=== PATIENT | female | born 1970 | race Caucasian/White ===

== ENCOUNTER → 2016-04-27 | Outpatient (CLI) | payer BC ==
--- NOTE | 2016-04-27 09:02 | MM ---
Reason for exam: history of breast cancer, conservation therapy. Last mammogram was performed 1 year ago. History: Patient has history of breast cancer at age 44, has history of high-risk lesion on a previous biopsy at age 44, and had first child at age 33. Family history of breast cancer in maternal aunt at age 60. Radiation therapy, September 2014. Malignant MG pre op needle loc RT of the right breast, July 06, 2014. High risk MG stereo VAD BX RT of the right breast, June 24, 2014. Took hormonal contraceptives for 10 years. Taking antineoplastic for 1 year 5 months. Physical Findings: Nurse did not find any significant physical abnormalities on exam. MG Diagnostic Mammo w CAD PATRICIA Bilateral CC and MLO view(s) were taken. Prior study comparison: April 26, 2015, bilateral MG 3d diag mammo w/cad PATRICIA. July 06, 2014, right breast US breast limited RT. June 19, 2014, right breast MG work up mamm w CAD RT. The breast tissue is heterogeneously dense. This may lower the sensitivity of mammography. Post surgical and post therapy changes in the right breast. Some of the right breast tissue has altered orientation, making direct comparison difficult. Short interval follow up recommended. These results were verbally communicated with the patient and result sheet given to the patient on . ASSESSMENT: Probably benign, BI-RAD 3 RECOMMENDATION: Follow-up diagnostic mammogram of the right breast in 6 months.
== END | disposition home or self-care (01) ==
LOC: RADMAMWWP 08:09
PROVIDERS: ATTEND Radiology Diagnostic Radiology
DX: C50.911 Malignant neoplasm of unspecified site of right female breast (principal)

== ENCOUNTER → 2016-10-23 | Outpatient (CLI) | payer BC ==
--- NOTE | 2016-10-23 10:46 | MM ---
Reason for exam: follow-up at short interval from prior study. Last mammogram was performed 6 months ago. History: Patient has history of breast cancer at age 44, has history of high-risk lesion on a previous biopsy at age 44, and had first child at age 33. Family history of breast cancer in maternal aunt at age 60. Radiation therapy, September 2014. Malignant MG pre op needle loc RT of the right breast, July 06, 2014. High risk MG stereo VAD BX RT of the right breast, June 24, 2014. Took hormonal contraceptives for 10 years. Taking antineoplastic for 1 year 5 months. Physical Findings: Nurse did not find any significant physical abnormalities on exam. MG Diagnostic Mammo RT w CAD CC and MLO view(s) were taken of the right breast. Prior study comparison: April 27, 2016, bilateral MG diagnostic mammo w CAD PATRICIA. April 26, 2015, bilateral MG 3d diag mammo w/cad PATRICIA. July 06, 2014, right breast US breast limited RT. The breast tissue is heterogeneously dense. This may lower the sensitivity of mammography. Post surgical changes inferior right breast. An additional 6 month follow up would diane 3 years since patient's surgery. No significant new findings when compared with previous films. These results were verbally communicated with the patient and result sheet given to the patient on 10/23/16. ASSESSMENT: Probably benign, BI-RAD 3 RECOMMENDATION: Follow-up diagnostic mammogram of both breasts in 6 months. Back on schedule for April 2017.
== END | disposition home or self-care (01) ==
LOC: RADMAMWWP 08:55
PROVIDERS: ATTEND Radiology Diagnostic Radiology
DX: C50.911 Malignant neoplasm of unspecified site of right female breast (principal)

== ENCOUNTER → 2017-02-26 | Outpatient (CLI) | payer BC ==
--- NOTE | 2017-02-26 11:15 | MR ---
EXAMINATION TYPE: MR lumbar spine wo/w con DATE OF EXAM: 02/26/2017 COMPARISON: 09/23/2013 MRI SI joints HISTORY: Low back pain Contrast: 6 mL Gadavist TECHNIQUE: T1 and T2 axial and sagittal, postcontrast T1 sagittal and axial images of the lumbar spi ne are submitted. FINDINGS: There is no abnormal signal seen within the visualized spinal cord or paraspinal soft tissu es. Cholelithiasis. At L1-2 there is no disc herniation or canal stenosis. Neural foramina At L2-3 there is no disc herniation or canal stenosis. No foraminal At L3-4 there is hypertrophic change of the facets. No disc herniation or canal stenosis. No foramina l encroachment At L4-5 there is mild degenerative disc disease with broad-based disc bulging. Hypertrophy of the lig amentum flavum and facet joints contribute to mild canal stenosis and mild bilateral foraminal encro achment. At L5-S1 there is grade 1 anterolisthesis with moderate degenerative change. There is severe facet ar thropathy. Bilateral mild to moderate foraminal encroachment. Vertebral body hemangioma L5. IMPRESSION: 1. At L5-S1 there is grade 1 anterolisthesis with moderate degenerative change. There is severe facet arthropathy. Bilateral mild to moderate foraminal encroachment. Anterolisthesis has progressed from the prior MRI. 2. Mild degenerative disc disease with circumferential disc bulging L4-L5 and hypertrophic change of the facets and ligamentum flavum contribute to mild canal stenosis. Mild bilateral foraminal encroach ment. 3. Cholelithiasis.
== END | disposition home or self-care (01) ==
LOC: RADMRIMAIN 09:39
PROVIDERS: ATTEND Internal Medicine Rheumatology
DX: M51.26 Other intervertebral disc displacement, lumbar region (principal); M51.36 Other intervertebral disc degeneration, lumbar region; M43.17 Spondylolisthesis, lumbosacral region; M48.061 Spinal stenosis, lumbar region without neurogenic claudication; M47.817 Spondylosis without myelopathy or radiculopathy, lumbosacral region; M53.86 Other specified dorsopathies, lumbar region
CPT/HCPCS: 72158; A9581

== ENCOUNTER → 2017-04-30 | Outpatient (CLI) | payer BC ==
--- NOTE | 2017-04-30 10:37 | MM ---
Reason for exam: follow-up at short interval from prior study. Last mammogram was performed 6 months ago. History: Patient has history of breast cancer at age 44, has history of high-risk lesion on a previous biopsy at age 44, and had first child at age 33. Family history of breast cancer in maternal aunt at age 60. Radiation therapy, September 2014. Malignant MG pre op needle loc RT of the right breast, July 06, 2014. High risk MG stereo VAD BX RT of the right breast, June 24, 2014. Took hormonal contraceptives for 10 years. Taking antineoplastic for 1 year 5 months. Physical Findings: Nurse did not find any significant physical abnormalities on exam. MG Diagnostic Mammo w CAD PATRICIA Bilateral CC and MLO view(s) were taken. Prior study comparison: October 23, 2016, right breast MG diagnostic mammo RT w CAD. April 27, 2016, bilateral MG diagnostic mammo w CAD PATRICIA. The breast tissue is heterogeneously dense. This may lower the sensitivity of mammography. Post surgical and post therapy changes in the right breast. No significant new findings when compared with previous films. These results were verbally communicated with the patient and result sheet given to the patient on 04/30/17. ASSESSMENT: Benign, BI-RAD 2 RECOMMENDATION: Follow-up diagnostic mammogram of both breasts in 1 year.
== END | disposition home or self-care (01) ==
LOC: RADMAMWWP 08:44
PROVIDERS: ATTEND Radiology Diagnostic Radiology
DX: C50.911 Malignant neoplasm of unspecified site of right female breast (principal); Z79.810 Long term (current) use of selective estrogen receptor modulators (SERMs)
CPT/HCPCS: 77066

== ENCOUNTER → 2018-04-30 | Outpatient (CLI) | payer BC ==
--- NOTE | 2018-04-30 15:57 | US ---
EXAMINATION TYPE: US kidneys/renal and bladder DATE OF EXAM: 04/30/2018 COMPARISON: MRI lumbar spine February 26, 2017 CLINICAL HISTORY: R79.89 Other specified abnormal findings of blood. EXAM MEASUREMENTS: Right Kidney: 10.4 x 4.4 x 5.7 cm Left Kidney: 11.0 x 5.2 x 5.5 cm Right Kidney: No hydronephrosis or masses seen Left Kidney: echogenic area appears as lesion, measures 1.4 x 1.3 x 0.9 cm, could be continuation of sinus. Bladder: wnl Bilateral Jets seen: Yes There is no evidence for hydronephrosis at this point in time. No nephrolithiasis is seen. No vinayak s are identified. The urinary bladder is anechoic. Bilateral ureteral jets are seen. IMPRESSION: No hydronephrosis is evident bilaterally.
== END | disposition home or self-care (01) ==
LOC: RADUSWWP 15:19
PROVIDERS: ATTEND Family Medicine
DX: R79.89 Other specified abnormal findings of blood chemistry (principal)
CPT/HCPCS: 76770

== ENCOUNTER → 2018-05-02 | Outpatient (CLI) | payer BC ==
--- NOTE | 2018-05-06 17:17 | MM ---
Reason for exam: additional evaluation requested from prior study. Last mammogram was performed 1 year ago. History: Patient has history of breast cancer at age 44, has history of high-risk lesion on a previous biopsy at age 44, and had first child at age 33. Family history of breast cancer in maternal aunt at age 60. Radiation therapy, September 2014. Malignant MG pre op needle loc RT of the right breast, July 06, 2014. High risk MG stereo VAD BX RT of the right breast, June 24, 2014. Took hormonal contraceptives for 10 years. Taking tamoxifen. Taking antineoplastic for 4 years 5 months. Physical Findings: Nurse did not find any significant physical abnormalities on exam. MG Diagnostic Mammo w CAD PATRICIA Bilateral CC and MLO view(s) were taken. Prior study comparison: April 30, 2017, bilateral MG diagnostic mammo w CAD PATRICIA. October 23, 2016, right breast MG diagnostic mammo RT w CAD. The breast tissue is extremely dense which could obscure a lesion on mammography. No suspicious abnormality. Right lower inner quadrant post surgical changes are noted. These results were verbally communicated with the patient and result sheet given to the patient on 05/02/18. ASSESSMENT: Benign, BI-RAD 2 RECOMMENDATION: Routine screening mammogram of both breasts in 1 year.
== END | disposition home or self-care (01) ==
LOC: RADMAMWWP 08:42
PROVIDERS: ATTEND Radiology Diagnostic Radiology
DX: C50.111 Malignant neoplasm of central portion of right female breast (principal)
CPT/HCPCS: 77066

== ENCOUNTER → 2019-05-05 | Outpatient (CLI) | payer BC ==
--- NOTE | 2019-05-05 09:30 | MM ---
Reason for exam: additional evaluation requested from prior study. Last mammogram was performed 1 year ago. History: Patient has history of breast cancer at age 44, has history of high-risk lesion on a previous biopsy at age 44, and had first child at age 33. Family history of breast cancer in maternal aunt at age 60. Radiation therapy, September 2014. Malignant MG pre op needle loc RT of the right breast, July 06, 2014. High risk MG stereo VAD BX RT of the right breast, June 24, 2014. Took hormonal contraceptives for 10 years. Taking tamoxifen. Taking antineoplastic for 4 years 5 months. Physical Findings: Nurse Summary: 1 x 1cm nodule in the right breast at 5 o'clock (nurse dw). MG Diagnostic Mammo w CAD PATRICIA Bilateral CC and MLO view(s) were taken. LM view(s) were taken of the right breast. Prior study comparison: May 02, 2018, bilateral MG diagnostic mammo w CAD PATRICIA. April 30, 2017, bilateral MG diagnostic mammo w CAD PATRICIA. The breast tissue is heterogeneously dense. This may lower the sensitivity of mammography. No suspicious calcifications are seen. Stable post operative distortion right breast. These results were verbally communicated with the patient and result sheet given to the patient on 05/05/19. ASSESSMENT: Benign, BI-RAD 2 RECOMMENDATION: Follow-up diagnostic mammogram of both breasts in 1 year. Manage patient on a clinical basis.
== END | disposition home or self-care (01) ==
LOC: RADMAMWWP 08:48
PROVIDERS: ATTEND Radiology Diagnostic Radiology
DX: C50.911 Malignant neoplasm of unspecified site of right female breast (principal)
CPT/HCPCS: 77066

== ENCOUNTER → 2020-05-06 | Outpatient (CLI) | payer BC ==
--- NOTE | 2020-05-06 10:28 | MM ---
Reason for exam: additional evaluation requested from prior study. Last mammogram was performed 1 year ago. History: Patient has history of breast cancer at age 44, has history of high-risk lesion on a previous biopsy at age 44, and had first child at age 33. Family history of breast cancer in maternal aunt at age 60. Radiation therapy, September 2014. Malignant MG pre op needle loc RT of the right breast, July 06, 2014. High risk MG stereo VAD BX RT of the right breast, June 24, 2014. Took hormonal contraceptives for 10 years. Taking tamoxifen. Taking antineoplastic for 4 years 5 months. Physical Findings: Nurse did not find any significant physical abnormalities on exam. MG Diagnostic Mammo w CAD PATRICIA Bilateral CC and MLO view(s) were taken. Prior study comparison: May 05, 2019, bilateral MG diagnostic mammo w CAD PATRICIA. May 02, 2018, bilateral MG diagnostic mammo w CAD PATRICIA. The breast tissue is extremely dense which could obscure a lesion on mammography. No significant new findings when compared with previous films. These results were verbally communicated with the patient and result sheet given to the patient on 05/06/20. ASSESSMENT: Benign, BI-RAD 2 RECOMMENDATION: Follow-up diagnostic mammogram of both breasts in 1 year.
== END | disposition home or self-care (01) ==
LOC: RADMAMWWP 09:32
PROVIDERS: ATTEND Radiology Diagnostic Radiology
DX: C50.911 Malignant neoplasm of unspecified site of right female breast (principal)
CPT/HCPCS: 77066

== ENCOUNTER → 2021-05-09 | Outpatient (CLI) | payer BC ==
--- NOTE | 2021-05-09 10:51 | MM ---
Reason for exam: additional evaluation requested from prior study. Last mammogram was performed 1 year ago. History: Patient has history of breast cancer at age 44, has history of high-risk lesion on a previous biopsy at age 44, and had first child at age 33. Family history of breast cancer in maternal aunt at age 60. Radiation therapy, September 2014. Malignant MG pre op needle loc RT of the right breast, July 06, 2014. High risk MG stereo VAD BX RT of the right breast, June 24, 2014. Took hormonal contraceptives for 10 years. Taking tamoxifen. Taking antineoplastic for 4 years 5 months. Physical Findings: Nurse did not find any significant physical abnormalities on exam. MG Diagnostic Mammo w CAD PATRICIA Bilateral CC and MLO view(s) were taken. Prior study comparison: May 06, 2020, bilateral MG diagnostic mammo w CAD PATRICIA. May 05, 2019, bilateral MG diagnostic mammo w CAD PATRICIA. The breast tissue is heterogeneously dense. This may lower the sensitivity of mammography. Finding #1: Architectural distortion in the lower quadrant of the right breast. Finding #2: There are typically benign vascular calcifications in both breasts. There is no discrete abnormality. These results were verbally communicated with the patient and result sheet given to the patient on 05/09/21. ASSESSMENT: Benign, BI-RAD 2 RECOMMENDATION: Routine screening mammogram of both breasts in 1 year.
== END | disposition home or self-care (01) ==
LOC: RADMAMWWP 10:07
PROVIDERS: ATTEND Radiology Diagnostic Radiology
DX: C50.111 Malignant neoplasm of central portion of right female breast (principal); R92.8 Other abnormal and inconclusive findings on diagnostic imaging of breast; Z85.3 Personal history of malignant neoplasm of breast
CPT/HCPCS: 77066

== ENCOUNTER → 2021-06-14 | Outpatient (CLI) | payer BC ==
--- NOTE | 2021-06-14 14:30 | BD ---
EXAMINATION TYPE: Axial Bone Density DATE OF EXAM: 06/14/2021 COMPARISON: NONE CLINICAL HISTORY: Breast cancer. Postmenopausal female. Height: 5 FT 1 1/2 IN Weight: 131 FRAX RISK QUESTIONS: Alcohol (3 or more units per day): NO Family History (Parent hip fracture): NO Glucocorticoids (More than 3mos): NO (Ex: prednisone, prednisolone, methylprednisolone, dexamethasone, and hydrocortisone). History of Fracture in Adulthood: NO Secondary Osteoporosis: 1. Type 1 Diabetes: NO 2. Hyperthyroidism: NO 3. Menopause before 45: NO 4. Malnutrition: NO 5. Chronic liver disease: NO Rheumatoid Arthritis: NO Current Tobacco Use: NO RISK FACTORS HISTORY OF: Surgery to Spine/Hip(right/left)/Wrist (right/left): NO Family History of Osteoporosis: NO Active: YES Diet low in dairy products/other sources of calcium: NO Postmenopausal woman: YES Take estrogen and/or progesterone medications: NONE Lost more than 2 inches in height since high school: NO Frequent falls: NO Poor Health: FAIR Hyperparathyroidism: NO Adrenal Insufficiency: NO MEDICATIONS: Additional Medications: LISINOPRIL, ANASTROZOLE, OXY BUTIN, CYCLOBENZAPRINE, TYLENOL, EXCEDRIN, Additional History: BREAST CANCER 2014 EXAM MEASUREMENTS: Bone mineral densitometry was performed using the [employer] System. Bone mineral density as measured about the Lumbar spine is: ----- L1-L4(G/cm2): 1.169 T Score Values are as follows: ----- L2: -0.9 ----- L3: -0.4 ----- L4: 0.9 ----- L1-L4: -0.1 BASELINE Bone mineral density about the R hip (g/cm2): 0.912 Bone mineral density about the L hip (g/cm2): 0.919 T Score values are as follows: -----R Neck: -0.9 -----L Neck: -0.9 -----R Total: -0.4 -----L Total: -0.2 BASELINE IMPRESSION: Normal (Values between +1 and -1 indicate normal bone mass). Consider repeating this study in 5 year s or sooner if there is some new clinical indication. NOTE: T-SCORE=SD OF THE YOUNG ADULT MEAN.
== END | disposition home or self-care (01) ==
LOC: RADBDWWP 09:15
PROVIDERS: ATTEND Internal Medicine Hematology & Oncology
DX: C50.111 Malignant neoplasm of central portion of right female breast (principal); Z79.890 Hormone replacement therapy
CPT/HCPCS: 77080

== ENCOUNTER → 2022-05-10 | Outpatient (CLI) | payer BC ==
--- NOTE | 2022-05-10 10:42 | MM ---
Reason for Exam: Hx of breast cancer, conservation therapy. Last screening mammogram was performed 12 month(s) ago. Patient History: Menarche at age 11. First Full-Term at age 33. Late child-bearing (after 30). Postmenopausal. Breast cancer, right, age 44. Patient used Hormonal Contraceptives for 10 years. Used Tamoxifen. 07/06/2014, Malignant Core Biopsy on the right side. 06/24/2014, High risk Core Biopsy on the right side. 09/2014, Radiation Therapy. Maternal aunt had breast cancer, age 60. Prior Study Comparison: 05/05/2019 Bilateral Diagnostic Mammogram, [facility]. 05/06/2020 Bilateral Diagnostic Mammogram, [facility]. 05/09/2021 Bilateral Diagnostic Mammogram, [facility]. Tissue Density: The breast tissue is heterogeneously dense. This may lower the sensitivity of mammography. Findings: Analyzed By CAD. No new suspicious mass or calcifications within either breast. Posttreatment changes of the right breast. Benign appearing round calcifications within both breasts. Overall Assessment: Benign, BI-RAD 2 Management: Diagnostic Mammogram of both breasts in 1 year. A clinical breast exam by your physician is recommended on an annual basis and results should be correlated with mammographic findings. This exam should not preclude additional follow-up of suspicious palpable abnormalities. Results were given to the patient verbally at the time of exam. Electronically signed and approved by: Ernesto Boswell D.O.
== END | disposition home or self-care (01) ==
LOC: RADMAMWWP 10:12
PROVIDERS: ATTEND Radiology Diagnostic Radiology
DX: C50.111 Malignant neoplasm of central portion of right female breast (principal); Z78.0 Asymptomatic menopausal state; Z80.3 Family history of malignant neoplasm of breast
CPT/HCPCS: 77066

== ENCOUNTER → 2023-05-14 | Outpatient (CLI) | payer BC ==
--- NOTE | 2023-05-14 09:09 | MM ---
Reason for Exam: Additional evaluation requested from prior study. Last screening mammogram was performed 12 month(s) ago. Patient History: Menarche at age 11. First Full-Term at age 33. Late child-bearing (after 30). Postmenopausal. Breast cancer, right, age 44. Patient used Hormonal Contraceptives for 10 years. Currently using Tamoxifen, for 6 months. 07/06/2014, Malignant Core Biopsy on the right side. 06/24/2014, High risk Core Biopsy on the right side. 09/2014, Radiation Therapy. Maternal aunt had breast cancer, age 60. Tissue Density: The breast tissue is heterogeneously dense. This may lower the sensitivity of mammography. Findings: Analyzed By CAD. No mass or distortion seen. No suspicious calcifications evident. Overall Assessment: Benign, BI-RAD 2 Management: Diagnostic Mammogram of both breasts in 1 year. . Results were given to the patient verbally at the time of exam. Patient should continue monthly self-breast exams. A clinical breast exam by your physician is recommended on an annual basis. This exam should not preclude additional follow-up of suspicious palpable abnormalities. Note on Mihaela scores and lifetime risk: 1. A Mihaela score greater than 3% is considered moderate risk. If this is the case, consider specialist referral to assess eligibility for a risk reducing agent. 2. If overall lifetime risk for the development of breast cancer is 20% or higher, the patient may qualify for future screening with alternating mammogram and breast MRI. Electronically signed and approved by: Eran Manning M.D. Radiologis
== END | disposition home or self-care (01) ==
LOC: RADMAMWWP 08:45
PROVIDERS: ATTEND Radiology Radiation Oncology
DX: C50.511 Malignant neoplasm of lower-outer quadrant of right female breast (principal); R92.333 Mammographic heterogeneous density, bilateral breasts; Z80.3 Family history of malignant neoplasm of breast; Z78.0 Asymptomatic menopausal state
CPT/HCPCS: 77062; 77066